=== PATIENT | male | born 1960 | race Caucasian/White ===

== ENCOUNTER 2020-04-04 20:47 | Inpatient (IN) | payer MEDICARE ==
[~2020-04-04] VITALS: Ht 167.6 cm; Wt 64.9 kg
[2020-04-04] MEDS ORDERED: [UNRECOGNIZED DRUG - REMARK] (21:56)
[2020-04-04] MEDS ORDERED: BENZ1TAB7 PO (21:56)
[2020-04-04] MEDS ORDERED: DICL50TA6 PO (21:56)
[2020-04-04] MEDS ORDERED: RIVA20TA PO (21:56)
[2020-04-04] MEDS ORDERED: ATOR10TA33 PO (21:56)
[2020-04-04] MEDS ORDERED: ASCO500C18 PO (21:56)
[2020-04-04] MEDS ORDERED: OLAN15TA3 PO (21:56)
[2020-04-04] MEDS ORDERED: FERR325C PO (21:56)
[2020-04-04 22:00] VITALS: BP 99/76
[2020-04-04] MEDS ORDERED: MAG HYDROX/AL HYDROX/SIMETH 30 ML LIQUID UDC PO PRN (22:00)
[2020-04-04] MEDS ORDERED: MAGNESIUM HYDROXIDE 30 ML LIQUID UDC PO PRN (22:00)
[2020-04-04] MEDS ORDERED: BLOOD SUGAR DIAGNOSTIC 1 EACH STRIP VI ONE (22:00)
[2020-04-04] MEDS ORDERED: ACETAMINOPHEN 325 MG TABLET PO PRN (22:00)
[2020-04-04] MEDS: TEMAZEPAM 7.5 MG CAPSULE PO PRN (22:38)
[2020-04-05] MEDS: LORAZEPAM 0.5 MG TABLET PO PRN (05:57)
[2020-04-05 07:30] VITALS: BP 97/67
[2020-04-05] MEDS: NICOTINE 14 MG/24HR PATCH TD SCH (08:36)
[2020-04-05] MEDS ORDERED: HOME MED MISCELLANEOUS XX SCH (12:00)
[2020-04-05 15:06] VITALS: BP 105/59
[2020-04-05] MEDS: OLANZAPINE 5 MG TABLET PO SCH (18:58)
[2020-04-05] MEDS: DIVALPROEX 250 MG TABLET.DR PO SCH (18:58)
[2020-04-05 19:57] VITALS: BP 117/72
[2020-04-05] MEDS ORDERED: RIVAROXABAN 10 MG TABLET PO ONE (20:00)
[2020-04-05] MEDS: ATORVASTATIN 10 MG TABLET PO SCH (20:08)
[2020-04-06 07:30] VITALS: BP 109/69
[2020-04-06 07:55] LABS: CREATININE 0.9 mg/dL (0.6-1.3); POTASSIUM 5.5 mmol/L (3.5-5.1)
[2020-04-06 08:00] LABS: BASOPHILS # (AUTO) 0.1 K/uL (0.0-8.0); BASOPHILS % (AUTO) 2.3 % (0.0-2.0); EOSINOPHILS # (AUTO) 0.1 K/uL (0.0-0.7); EOSINOPHILS % (AUTO) 2.5 % (0.0-7.0); HEMATOCRIT 38.6 % (36.7-47.1); HEMOGLOBIN 12.7 g/dL (12.5-16.3); LYMPHOCYTES # (AUTO) 1.2 K/uL (20.0-40.0); LYMPHOCYTES % (AUTO) 25.1 % (20.5-51.5); MEAN CORPUSCULAR HEMOGLOBIN 25.8 uug (23.8-33.4); MEAN CORPUSCULAR HGB CONC 33 g/dL (32.5-36.3); MEAN CORPUSCULAR VOLUME 78.6 fL (73.0-96.2); MONOCYTES # (AUTO) 0.4 K/uL (2.0-10.0); NEUTROPHILS # (AUTO) 2.9 K/uL (1.8-8.9); NEUTROPHILS % (AUTO) 61.1 % (38.5-71.5); PLATELET COUNT (AUTO) 430 K/uL (152-348); RED BLOOD CELL COUNT(AUTO) 4.91 MIL/uL (4.06-5.63); WHITE BLOOD COUNT (AUTO) 4.7 K/uL (3.6-10.2)
[2020-04-06] MEDS: ASCORBIC ACID 500 MG TABLET PO SCH (09:00)
[2020-04-06] MEDS: FERROUS SULFATE 325 MG TABEC PO SCH (09:00)
[2020-04-06] MEDS: DIVALPROEX 250 MG TABLET.DR PO SCH ×3 (09:00→16:50)
[2020-04-06] MEDS: NICOTINE 14 MG/24HR PATCH TD SCH (09:00)
[2020-04-06] MEDS: OLANZAPINE 5 MG TABLET PO SCH ×2 (09:12→16:51)
[2020-04-06] MEDS: LORAZEPAM 0.5 MG TABLET PO PRN ×2 (09:12→23:50)
[2020-04-06 09:47] LABS: THYROID STIMULATING HORMONE 1.468 mIU/mL (0.358-3.740)
[2020-04-06] MEDS ORDERED: SODIUM POLYSTYRENE SULFONATE 15 G/60 ML LIQUID UDC PO ONE (12:00)
[2020-04-06 15:19] VITALS: BP 110/65
[2020-04-06] MEDS: RIVAROXABAN 10 MG TABLET PO SCH (18:00)
[2020-04-06 20:11] VITALS: BP 116/64
[2020-04-06] MEDS: ATORVASTATIN 10 MG TABLET PO SCH (20:55)
[2020-04-06] MEDS: TEMAZEPAM 7.5 MG CAPSULE PO PRN (22:59)
[2020-04-07 07:30] VITALS: BP 105/74
[2020-04-07] MEDS: DIVALPROEX 250 MG TABLET.DR PO SCH ×3 (08:46→17:16)
[2020-04-07] MEDS: OLANZAPINE 5 MG TABLET PO SCH ×2 (08:46→17:16)
[2020-04-07] MEDS: ASCORBIC ACID 500 MG TABLET PO SCH (08:47)
[2020-04-07] MEDS: FERROUS SULFATE 325 MG TABEC PO SCH (08:47)
[2020-04-07] MEDS: NICOTINE 14 MG/24HR PATCH TD SCH (08:48)
[2020-04-07] MEDS ORDERED: OLANZAPINE 10 MG VIAL IM ONE (14:30)
[2020-04-07] MEDS ORDERED: LORAZEPAM 2 MG/1 ML VIAL IM ONE (14:30)
[2020-04-07] MEDS: LORAZEPAM 0.5 MG TABLET PO PRN ×2 (14:42→20:05)
[2020-04-07 15:49] VITALS: BP 121/75
[2020-04-07] MEDS: RIVAROXABAN 10 MG TABLET PO SCH (17:16)
[2020-04-07 20:00] VITALS: BP 116/71
[2020-04-07] MEDS: ATORVASTATIN 10 MG TABLET PO SCH (21:00)
[2020-04-07] MEDS: TEMAZEPAM 7.5 MG CAPSULE PO PRN (21:11)
[2020-04-08 07:30] VITALS: BP 119/76
[2020-04-08] MEDS: OLANZAPINE 5 MG TABLET PO SCH ×3 (08:19→20:24)
[2020-04-08] MEDS: ASCORBIC ACID 500 MG TABLET PO SCH (08:20)
[2020-04-08] MEDS: DIVALPROEX 250 MG TABLET.DR PO SCH ×3 (08:20→16:20)
[2020-04-08] MEDS: NICOTINE 14 MG/24HR PATCH TD SCH (08:20)
[2020-04-08] MEDS: FERROUS SULFATE 325 MG TABEC PO SCH (08:20)
[2020-04-08 16:00] VITALS: BP 115/81
[2020-04-08] MEDS: RIVAROXABAN 10 MG TABLET PO SCH (17:22)
[2020-04-08] MEDS: ATORVASTATIN 10 MG TABLET PO SCH ×2 (20:24→20:33)
[2020-04-08 20:27] VITALS: BP 116/74
[2020-04-08] MEDS: LORAZEPAM 0.5 MG TABLET PO PRN (21:25)
[2020-04-09 07:30] VITALS: BP 107/58
[2020-04-09] MEDS: ASCORBIC ACID 500 MG TABLET PO SCH (08:20)
[2020-04-09] MEDS: FERROUS SULFATE 325 MG TABEC PO SCH (08:20)
[2020-04-09] MEDS: DIVALPROEX 250 MG TABLET.DR PO SCH ×4 (08:20→17:08)
[2020-04-09] MEDS: NICOTINE 14 MG/24HR PATCH TD SCH (08:20)
[2020-04-09 16:26] VITALS: BP 112/66
[2020-04-09] MEDS: RIVAROXABAN 10 MG TABLET PO SCH (17:08)
[2020-04-09 20:00] VITALS: BP 111/63
[2020-04-09] MEDS: OLANZAPINE 5 MG TABLET PO SCH (20:01)
[2020-04-09] MEDS: ATORVASTATIN 10 MG TABLET PO SCH (20:04)
[2020-04-10 07:30] VITALS: BP 95/65
[2020-04-10] MEDS: DIVALPROEX 250 MG TABLET.DR PO SCH ×3 (08:14→16:45)
[2020-04-10] MEDS: NICOTINE 14 MG/24HR PATCH TD SCH (08:14)
[2020-04-10] MEDS: FERROUS SULFATE 325 MG TABEC PO SCH (08:14)
[2020-04-10] MEDS: ASCORBIC ACID 500 MG TABLET PO SCH (08:15)
[2020-04-10 16:43] VITALS: BP 129/77
[2020-04-10] MEDS: RIVAROXABAN 10 MG TABLET PO SCH (17:17)
[2020-04-10 20:00] VITALS: BP 123/65
[2020-04-10] MEDS: ATORVASTATIN 10 MG TABLET PO SCH ×2 (20:43→20:49)
[2020-04-10] MEDS: OLANZAPINE 5 MG TABLET PO SCH (20:43)
[2020-04-11] MEDS: FERROUS SULFATE 325 MG TABEC PO SCH (08:33)
[2020-04-11] MEDS: DIVALPROEX 250 MG TABLET.DR PO SCH ×3 (08:33→16:00)
[2020-04-11] MEDS: ASCORBIC ACID 500 MG TABLET PO SCH (08:33)
[2020-04-11] MEDS: NICOTINE 14 MG/24HR PATCH TD SCH (08:35)
[2020-04-11 10:11] VITALS: BP 116/60
[2020-04-11 16:35] VITALS: BP 123/72
[2020-04-11] MEDS: RIVAROXABAN 10 MG TABLET PO SCH (18:00)
[2020-04-11 20:12] VITALS: BP 106/64
[2020-04-11] MEDS: ATORVASTATIN 10 MG TABLET PO SCH (20:37)
[2020-04-11] MEDS: LORAZEPAM 0.5 MG TABLET PO PRN (20:37)
[2020-04-11] MEDS: OLANZAPINE 5 MG TABLET PO SCH (20:38)
[2020-04-12 00:02] LABS: BILIRUBIN,DIRECT 0.1 mg/dL (0.0-0.2); BILIRUBIN,TOTAL 0.3 mg/dL (0.2-1.0); CREATININE 1.2 mg/dL (0.6-1.3); POTASSIUM 4.2 mmol/L (3.5-5.1); TOTAL PROTEIN, SERUM 6.2 g/dL (6.4-8.2)
[2020-04-12 07:30] VITALS: BP 111/72
[2020-04-12] MEDS: FERROUS SULFATE 325 MG TABEC PO SCH (08:51)
[2020-04-12] MEDS: NICOTINE 14 MG/24HR PATCH TD SCH (08:51)
[2020-04-12] MEDS: ASCORBIC ACID 500 MG TABLET PO SCH (08:51)
[2020-04-12] MEDS: DIVALPROEX 250 MG TABLET.DR PO SCH ×3 (08:51→16:50)
[2020-04-12 16:00] VITALS: BP 92/52
[2020-04-12] MEDS: RIVAROXABAN 10 MG TABLET PO SCH (18:52)
[2020-04-12 19:30] VITALS: BP 95/44
[2020-04-12] MEDS: LORAZEPAM 0.5 MG TABLET PO PRN (20:20)
[2020-04-12] MEDS: ATORVASTATIN 10 MG TABLET PO SCH (20:44)
[2020-04-12] MEDS: OLANZAPINE 5 MG TABLET PO SCH (20:44)
[2020-04-13 07:53] VITALS: BP 107/76
[2020-04-13] MEDS: FERROUS SULFATE 325 MG TABEC PO SCH (08:50)
[2020-04-13] MEDS: DIVALPROEX 250 MG TABLET.DR PO SCH ×3 (08:50→16:43)
[2020-04-13] MEDS: ASCORBIC ACID 500 MG TABLET PO SCH (08:50)
[2020-04-13] MEDS: NICOTINE 14 MG/24HR PATCH TD SCH (08:50)
[2020-04-13 16:02] VITALS: BP 92/49
[2020-04-13] MEDS: RIVAROXABAN 10 MG TABLET PO SCH (17:05)
[2020-04-13 20:17] VITALS: BP 116/56
[2020-04-13] MEDS: ATORVASTATIN 10 MG TABLET PO SCH (20:26)
[2020-04-13] MEDS: OLANZAPINE 5 MG TABLET PO SCH ×4 (20:26→22:27)
[2020-04-14 08:23] VITALS: BP 117/71
[2020-04-14] MEDS: FERROUS SULFATE 325 MG TABEC PO SCH (09:00)
[2020-04-14] MEDS: ASCORBIC ACID 500 MG TABLET PO SCH (09:00)
[2020-04-14] MEDS: DIVALPROEX 250 MG TABLET.DR PO SCH ×2 (09:00→13:00)
[2020-04-14] MEDS: NICOTINE 14 MG/24HR PATCH TD SCH (09:00)
[2020-04-14 16:10] VITALS: BP 93/59
[2020-04-14] MEDS: RIVAROXABAN 10 MG TABLET PO SCH (17:24)
[2020-04-14 20:08] VITALS: BP 112/62
[2020-04-14] MEDS: ATORVASTATIN 10 MG TABLET PO SCH (20:50)
[2020-04-14] MEDS: OLANZAPINE 5 MG TABLET PO SCH (20:50)
[2020-04-15] MEDS: NICOTINE 14 MG/24HR PATCH TD SCH (08:39)
[2020-04-15] MEDS: ASCORBIC ACID 500 MG TABLET PO SCH (08:39)
[2020-04-15] MEDS: FERROUS SULFATE 325 MG TABEC PO SCH (08:39)
[2020-04-15 15:13] VITALS: BP 127/79
[2020-04-15] MEDS: RIVAROXABAN 10 MG TABLET PO SCH (17:56)
[2020-04-15 20:05] VITALS: BP 101/58
[2020-04-15] MEDS: OLANZAPINE 5 MG TABLET PO SCH (20:55)
[2020-04-15] MEDS: ATORVASTATIN 10 MG TABLET PO SCH (20:56)
[2020-04-16 07:30] VITALS: BP 95/57
[2020-04-16] MEDS: ASCORBIC ACID 500 MG TABLET PO SCH (08:05)
[2020-04-16] MEDS: NICOTINE 14 MG/24HR PATCH TD SCH (08:06)
[2020-04-16] MEDS: FERROUS SULFATE 325 MG TABEC PO SCH (08:06)
[2020-04-16 15:48] VITALS: BP 99/51
[2020-04-16] MEDS: RIVAROXABAN 10 MG TABLET PO SCH (17:09)
[2020-04-16] MEDS: OLANZAPINE 5 MG TABLET PO SCH (20:39)
[2020-04-16] MEDS: ATORVASTATIN 10 MG TABLET PO SCH (20:39)
[2020-04-16 21:01] VITALS: BP 103/52
[2020-04-17 07:30] VITALS: BP 99/58
[2020-04-17] MEDS: FERROUS SULFATE 325 MG TABEC PO SCH (08:18)
[2020-04-17] MEDS: NICOTINE 14 MG/24HR PATCH TD SCH (08:18)
[2020-04-17] MEDS: ASCORBIC ACID 500 MG TABLET PO SCH (08:18)
== END 2020-04-17 13:30 | DRG 885 ==
LOC: ER 20:55 → GPS 21:40
PROVIDERS: ADMIT Psychiatry & Neurology Psychiatry; ATTEND Student in an Organized Health Care Education/Training Program
DX: F20.0 Paranoid schizophrenia (principal); D68.59 Other primary thrombophilia; Z59.0 Homelessness; E87.5 Hyperkalemia; Z91.14 Patient's other noncompliance with medication regimen; Z79.01 Long term (current) use of anticoagulants; Z79.899 Other long term (current) drug therapy; Z86.718 Personal history of other venous thrombosis and embolism; E78.5 Hyperlipidemia, unspecified; F32.9 Major depressive disorder, single episode, unspecified; Z20.822 Contact with and (suspected) exposure to COVID-19; F12.10 Cannabis abuse, uncomplicated; F10.10 Alcohol abuse, uncomplicated
CPT/HCPCS: 36415; 71045; 84443; 85025; 93005; A4663; J2060; J2358; J3490